=== PATIENT | female | born 1965 ===

== ENCOUNTER 2017-01-17 09:21 | Emergency (ER) | payer OTHER ==
[2017-01-17 09:26] VITALS: BMI 28.1
[2017-01-17 09:27] VITALS: BP 128/71; PULSE 80; RESP 16; TEMP 98; O2SAT 100
--- NOTE | 2017-01-17 10:30 | ED PDOC ---
HPI: General Adult Time Seen by Provider: 01/17/17 10:28 Chief Complaint (Nursing): Medical Clearance Chief Complaint (Provider): medical clearance History Per: Patient (51 y/o female h/o Schizoaffective/bipolar disorder here for evaluation of psychiatric illness. Patient was missing x 2 days (states she wanted pizza) and found [place] food court 2 days later. Patient got lost as per her sister. Patient lives with her mother. Patient without medications x 2 days but given medications today. No SI/HI.), Family Past Medical History Reviewed: Historical Data, Nursing Documentation, Vital Signs Vital Signs: Last Vital Signs Temp 98.0 F 01/17/17 09:25 Pulse 80 01/17/17 09:25 Resp 16 01/17/17 09:25 BP 128/71 01/17/17 09:25 Pulse Ox 100 01/17/17 10:30 - Medical History PMH: Schizophrenia - Family History Family History: States: No Known Family Hx - Allergies Allergies/Adverse Reactions: Allergies Allergy/AdvReac Type Severity Reaction Status Date / Time Penicillins Allergy RASH Verified 01/17/17 09:34 Review of Systems ROS Statement: Except As Marked, All Systems Reviewed And Found Negative Physical Exam - Reviewed Nursing Documentation Reviewed: Yes Vital Signs Reviewed: Yes - Physical Exam Appears: Positive for: Well, Non-toxic, No Acute Distress Head Exam: Positive for: ATRAUMATIC, NORMAL INSPECTION, NORMOCEPHALIC Skin: Positive for: Normal Color, Warm, DRY Eye Exam: Positive for: EOMI, Normal appearance, PERRL ENT: Positive for: Normal ENT Inspection Neck: Positive for: Normal, Painless ROM Cardiovascular/Chest: Positive for: Regular Rate, Rhythm Respiratory: Positive for: CNT, Normal Breath Sounds Gastrointestinal/Abdominal: Positive for: Normal Exam, Bowel Sounds, Soft Back: Positive for: Normal Inspection Extremity: Positive for: Normal ROM Neurologic/Psych: Positive for: Alert, Oriented - Laboratory Results Result Diagrams: 01/17/17 10:45 01/17/17 10:45 - ECG O2 Sat by Pulse Oximetry: 100 - Progress ED Course And Treament: SEEN BY CRISIS CLEARED FOR DISCHARGE BY DR. FLOOD DIAGNOSIS INTELLUCTUAL DISABLITY Disposition - Clinical Impression Clinical Impression: Intellectual disability - Patient ED Disposition Is Patient to be Admitted: No - Disposition Disposition: Routine/Home Disposition Time: 12:59 Condition: FAIR Instructions: Schizoaffective Disorder (ED)
[2017-01-17 11:10] LABS: BASO % 0.7 % (0.0-2.0); EOS # 0.1 K/uL (0.0-0.7); HEMATOCRIT 38.1 % (34.0-47.0); LYMPH # 2.1 K/uL (1.0-4.3); LYMPH % 29.9 % (20.0-40.0); MEAN CELL VOLUME 97.4 fl (81.0-99.0); MEAN CORPUSCULAR HGB CONC 33.9 g/dL (33.0-37.0); MEAN PLATELET VOLUME 9.4 fl (7.2-11.7); MONO # 0.9 K/uL (0.0-0.8); MONO % 13.5 % (0.0-10.0); NEUT # 3.8 K/uL (1.8-7.0); NEUT % 54.9 % (50.0-75.0); NRBC % 0.1 % (0.0-0.0); RED CELL DISTRIBUTION WIDTH 14.6 % (11.5-14.5)
[2017-01-17 11:18] LABS: ALCOHOL SERUM < 10 mg/dl (0-10); ALKALINE PHOSPHATASE 77 U/L (38-126); ALT/SGPT 39 U/L (9-52); AST/SGOT 42 U/L (14-36); BILIRUBIN,TOTAL 0.4 mg/dl (0.2-1.3); BLOOD UREA NITROGEN 19 mg/dl (7-17); CALCIUM 8.8 mg/dL (8.4-10.2); CARBON DIOXIDE 27 mmol/L (22-30); CHLORIDE 105 mmol/L (98-107); GFR AFRICAN-AMERICAN > 60; GLUCOSE,RANDOM 114 mg/dL (65-105); POTASSIUM 3.6 MMOL/L (3.6-5.0); SODIUM 141 mmol/l (132-148); TOTAL PROTEIN 6.6 G/DL (6.3-8.2)
[2017-01-17 11:25] LABS: ALB/GLOB RATIO 1.1 (1.0-2.1); RBC URINE 4 /hpf (0-3); URINE BACTERIA RARE (<OCC); URINE BILIRUBIN NEGATIVE (NEGATIVE); URINE BLOOD NEGATIVE (NEGATIVE); URINE COLOR YELLOW (YELLOW); URINE GLUCOSE (UA) NEG (Normal); URINE KETONE NEGATIVE (NEGATIVE); URINE LEUKOCYTE ESTERASE MOD Leu/uL (Negative); URINE PROTEIN NEGATIVE (NEGATIVE); URINE UROBILINOGEN 0.2-1.0 mg/dL (0.2-1.0); WBC URINE 11 /hpf (0-5)
--- NOTE | 2017-01-18 08:46 | RAD ---
HISTORY: routine COMPARISON: Comparison is made to the previous study dated 12/16/2012 FINDINGS: LUNGS: No active pulmonary disease. PLEURA: No significant pleural effusion identified, no pneumothorax apparent. CARDIOVASCULAR: Normal. OSSEOUS STRUCTURES: No significant abnormalities. VISUALIZED UPPER ABDOMEN: Normal. OTHER FINDINGS: None. IMPRESSION: No active disease.
--- NOTE | 2017-01-19 07:36 | CARD ---
APPROVED REPORT EKG Measurement Heart [id number] <Conclusion> Normal sinus rhythm Nonspecific T wave abnormality Abnormal ECG
== END 2017-01-17 13:15 | disposition home or self-care (01) ==
LOC: H.ER 09:21
DX: F20.9 Schizophrenia, unspecified (principal); F31.9 Bipolar disorder, unspecified; F79 Unspecified intellectual disabilities; Z88.0 Allergy status to penicillin

== ENCOUNTER 2017-04-21 18:46 | Emergency (ER) | payer OTHER ==
[2017-04-21 18:46] VITALS: BMI 28.1
[2017-04-21 18:50] VITALS: BP 131/57; PULSE 87; RESP 18; TEMP 98.7; O2SAT 99
--- NOTE | 2017-04-21 19:09 | ED PDOC ---
Lower Extremity Pain/Injury Time Seen by Provider: 04/21/17 18:53 Chief Complaint (Nursing): Lower Extremity Problem/Injury Chief Complaint (Provider): Left Leg Pain History Per: Patient History/Exam Limitations: no limitations Onset/Duration Of Symptoms: Hrs Current Symptoms Are (Timing): Still Present Additional Complaint(s): Loan Garza is a 51 year old female that was brought to the ED via EMS after she slipped and first fell onto her left knee and then backwards onto her left buttock earlier this evening. Patient denies LOC and is able to bear weight onto her left leg. Past Medical History Reviewed: Historical Data, Nursing Documentation, Vital Signs Vital Signs: Last Vital Signs Temp 98.7 F 04/21/17 18:48 Pulse 87 04/21/17 18:48 Resp 18 04/21/17 18:48 BP 131/57 L 04/21/17 18:48 Pulse Ox 99 04/21/17 18:48 - Medical History PMH: Schizophrenia Denies: Diabetes, Hepatitis, HIV, HTN, Seizures, Sexually Transmitted Disease - Family History Family History: States: Unknown Family Hx - Home Medications Home Medications: Ambulatory Orders Medication Instructions Recorded Nitrofurantoin Macrocrystals 100 mg PO BID #14 cap 01/17/17 [Macrobid] - Allergies Allergies/Adverse Reactions: Allergies Allergy/AdvReac Type Severity Reaction Status Date / Time Penicillins Allergy RASH Verified 04/21/17 18:48 Review of Systems Constitutional: Negative for: Other (denies LOC) Musculoskeletal: Positive for: Leg Pain (left knee pain, is able to bear weight onto her leg) Physical Exam - Reviewed Nursing Documentation Reviewed: Yes Vital Signs Reviewed: Yes - Physical Exam Appears: Positive for: Non-toxic, No Acute Distress Head Exam: Positive for: ATRAUMATIC, NORMOCEPHALIC Skin: Positive for: Normal Color (no erythema present on left leg), Warm Eye Exam: Positive for: Normal appearance, EOMI, PERRL Pulses-Dorsalis Pedis (L): 2+ Pulses-Dorsalis Pedis (R): 2+ Pulses-Post. Tibialis (L): 2+ Pulses-Post. Tibialis (R): 2+ Extremity: Positive for: Normal ROM (full ROM left leg), Tenderness (TTP left buttock, no ecchymosis. TTP left knee, no ecchymosis.) Neurologic/Psych: Positive for: Alert, Oriented. Negative for: Motor/Sensory Deficits - ECG O2 Sat by Pulse Oximetry: 99 (RA) Pulse Ox Interpretation: Normal Medical Decision Making Medical Decision Making: Impression: Left Knee Injury Plan: * X-Ray Left Knee * Reevaluation Scribe Attestation: Documented by Libia Finch, acting as a scribe for Ivory Urias PA-C. Provider Scribe Attestation: All medical record entries made by the Scribe were at my direction and personally dictated by me. I have reviewed the chart and agree that the record accurately reflects my personal performance of the history, physical exam, medical decision making, and the department course for this patient. I have also personally directed, reviewed, and agree with the discharge instructions and disposition. Disposition - Clinical Impression Clinical Impression: Knee pain - Patient ED Disposition Is Patient to be Admitted: No - Disposition Disposition: Routine/Home Disposition Time: 20:10 Condition: STABLE Instructions: Knee Pain (ED) Forms: [employer] (Indonesian)
--- NOTE | 2017-04-22 12:28 | RAD ---
PROCEDURE: Left Knee Radiographs. HISTORY: Pain. COMPARISON: None. FINDINGS: BONES: There is no fracture or dislocation appreciated. There is no suspicious lytic or blastic change identified. JOINTS: Joint space narrowing at the medial femorotibial compartment appreciated with mild osteophyte development with similar change identified at the patellofemoral joint. JOINT EFFUSION: None. OTHER FINDINGS: None. IMPRESSION: [id number] degenerative joint disease identified. No acute fracture or dislocation.
== END 2017-04-21 20:25 | disposition home or self-care (01) ==
LOC: H.ER 18:46
DX: M25.562 Pain in left knee (principal); W19.XXXA Unspecified fall, initial encounter; Y92.89 Other specified places as the place of occurrence of the external cause; F20.9 Schizophrenia, unspecified; Z88.0 Allergy status to penicillin

== ENCOUNTER 2017-11-15 17:03 | Emergency (ER) | payer OTHER ==
[2017-11-15 17:03] VITALS: BMI 28.1
[2017-11-15 17:12] VITALS: PULSE 106; RESP 18; TEMP 98.5; O2SAT 100
[2017-11-15 18:18] LABS: BASO % 0.6 % (0.0-2.0); EOS # 0.1 K/uL (0.0-0.7); EOS % 0.8 % (0.0-4.0); HEMOGLOBIN 14.9 g/dL (12.0-16.0); LYMPH # 2.8 K/uL (1.0-4.3); LYMPH % 33.5 % (20.0-40.0); MEAN CELL VOLUME 95.1 fl (81.0-99.0); MEAN CORPUSCULAR HEMOGLOBIN 31.6 pg (27.0-31.0); MEAN CORPUSCULAR HGB CONC 33.2 g/dL (33.0-37.0); MEAN PLATELET VOLUME 10.1 fl (7.2-11.7); MONO # 0.6 K/uL (0.0-0.8); MONO % 6.9 % (0.0-10.0); NEUT # 4.9 K/uL (1.8-7.0); NEUT % 58.2 % (50.0-75.0); NRBC % 0.1 % (0.0-0.0); RBC 4.73 Mil/uL (3.80-5.20); RED CELL DISTRIBUTION WIDTH 13.4 % (11.5-14.5); WHITE BLOOD COUNT 8.4 K/uL (4.8-10.8)
[2017-11-15 18:29] LABS: ALB/GLOB RATIO 1.1 (1.0-2.1); ALBUMIN 4.2 g/dL (3.5-5.0); ALT/SGPT 30 U/L (9-52); AST/SGOT 28 U/L (14-36); BLOOD UREA NITROGEN 22 mg/dl (7-17); CALCIUM 9.1 mg/dL (8.4-10.2); GFR AFRICAN-AMERICAN > 60; GFR NON-AFRICAN AMERICAN > 60
[2017-11-15 18:37] LABS: SQUAMOUS EPITHIAL 7 /hpf (0-5); URINE BACTERIA OCC (<OCC); URINE BILIRUBIN NEGATIVE (NEGATIVE); URINE BLOOD NEGATIVE (NEGATIVE); URINE CLARITY CLOUDY (Clear); URINE COLOR YELLOW (YELLOW); URINE GLUCOSE (UA) NEG (Normal); URINE LEUKOCYTE ESTERASE MOD Leu/uL (Negative); URINE NITRATE NEGATIVE (NEGATIVE); URINE PROTEIN NEGATIVE (NEGATIVE); URINE UROBILINOGEN 0.2-1.0 mg/dL (0.2-1.0)
[2017-11-15 18:47] LABS: BARBITURATES, UR NEGATIVE (NEGATIVE); BENZODIAZEPINES, UR NEGATIVE (NEGATIVE); OPIATES, UR NEGATIVE (NEGATIVE); PHENCYCLIDINE, UR NEGATIVE (NEGATIVE)
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
== END 2017-11-15 18:58 | disposition home or self-care (01) ==
LOC: H.ER 17:03
DX: F20.9 Schizophrenia, unspecified (principal); N39.0 Urinary tract infection, site not specified; F31.9 Bipolar disorder, unspecified; Z88.0 Allergy status to penicillin

== ENCOUNTER 2019-01-30 08:01 | Day surgery (SDC) | payer OTHER ==
[2019-01-30] MEDS ORDERED: Lactated Ringer's 500 ML IV ONE (08:16)
[2019-01-30 08:23] VITALS: BMI 24.5
[2019-01-30] MEDS ORDERED: Midazolam 2 MG/2 ML VIAL ONE (08:42)
[2019-01-30] MEDS ORDERED: Propofol 10 mg/ml Inj (20 ML) ONE (08:43)
[2019-01-30 09:48] VITALS: PULSE 84; TEMP 98; O2SAT 97
[2019-01-30 10:16] VITALS: BP 113/61; RESP 17
== END 2019-01-30 10:30 | disposition home or self-care (01) ==
LOC: H.ENDO 08:01
PROVIDERS: ATTEND Internal Medicine Gastroenterology
DX: Z12.11 Encounter for screening for malignant neoplasm of colon (principal); K64.8 Other hemorrhoids; F31.9 Bipolar disorder, unspecified; K29.50 Unspecified chronic gastritis without bleeding; K21.0 Gastro-esophageal reflux disease with esophagitis; K29.40 Chronic atrophic gastritis without bleeding; R10.13 Epigastric pain
CPT/HCPCS: 43239; 45378; 88305; 88342; J2001; J2250; J2704; J7120